=== PATIENT | female | born 1950 | race Caucasian/White ===

== ENCOUNTER 2018-10-13 05:29 | Day surgery (SDC) | payer MEDICARE, BC ==
[~2018-10-13 05:29] MED LIST: Sodium Chloride 0.9% 10 ML Syringe FLUSH PRN
[2018-10-13] MEDS ORDERED: Midazolam 1 MG/ML 2 ML SDV IV ONE ×5 (05:30→06:42)
[2018-10-13] MEDS ORDERED: fentaNYL 100 MCG/2 ML SDV IV ONE ×3 (05:30→06:33)
[2018-10-13] MEDS ORDERED: Dextrose 5%-0.45% NaCl 1,000 ML IV SCH (06:00)
[2018-10-13] MEDS ORDERED: Midazolam 1 MG/ML 2 ML SDV ONE (06:13)
[2018-10-13] MEDS ORDERED: fentaNYL 100 MCG/2 ML SDV ONE (06:13)
--- NOTE | 2018-10-13 07:12 | OR ---
DATE: 10/13/2018 PROCEDURE: Total colonoscopy. INSTRUMENT USED: PCF-H180 AL Olympus video colonoscope. PREMEDICATIONS: Fentanyl 100 mcg intravenous, Versed 3 mg intravenous. Nasal O2 cannula. The procedure was done under pulse oximetry, BP recording, and monitoring analyst. INDICATION: The patient with recent episode of left-sided lower abdominal pain, treated as diverticulitis, and also found to be anemic. Colonoscopic examination is done for detection of any polypoid lesions and removal. Endoscopic hemostasis therapy if needed. DESCRIPTION OF PROCEDURE: Initial rectal exam was unremarkable. Rigid anoscopy was normal. The colonoscope was passed with ease. Numerous scattered diverticula were noted in the distal left colon along with deformity. The scope was passed with ease up to the ileocecal area. Photographs were taken of the normal-appearing cecum identified by landmarks of appendiceal orifice and double-bulged ileocecal folds. No bleeding was noted from any of the visualized areas at the commencement of the examination. No stricture. No vascular ectasia. No large isolated ulcerations seen. No evidence of diffuse inflammatory bowel disease in the form of friability, contact bleeding, or ulcerations. No polyp or tumor mass identified. The bowel preparation was found to be adequate, [place] scale 3. Probing the proximal sides of folds and flexures, using adequate distention and clearing up the stool material, withdrawal of the scope was made. Cecum-to- rectum time over 6 minutes. No bleeding was noted from any of the visualized areas at the completion of examination. IMPRESSION: Diverticulosis. The patient tolerated the procedure well. [facility] /[id number]
== END 2018-10-13 08:50 | disposition home or self-care (01) ==
LOC: DL.ENDO 05:29
PROVIDERS: ATTEND Internal Medicine Gastroenterology
DX: R10.32 Left lower quadrant pain (principal); D64.9 Anemia, unspecified; K57.30 Diverticulosis of large intestine without perforation or abscess without bleeding; I10 Essential (primary) hypertension; J45.909 Unspecified asthma, uncomplicated; E11.9 Type 2 diabetes mellitus without complications; E66.09 Other obesity due to excess calories; K59.00 Constipation, unspecified; M06.9 Rheumatoid arthritis, unspecified; I25.10 Atherosclerotic heart disease of native coronary artery without angina pectoris; E78.5 Hyperlipidemia, unspecified; Z86.010 Personal history of colon polyps
CPT/HCPCS: 45378; J2250; J3010; J7042

== ENCOUNTER 2019-06-23 07:09 | Day surgery (SDC) | payer MEDICARE, BC ==
[~2019-06-23 07:09] MED LIST changes: +Midazolam 1 MG/ML 2 ML SDV ONE; -Sodium Chloride 0.9% 10 ML Syringe FLUSH PRN; +fentaNYL 100 MCG/2 ML SDV ONE
[2019-06-23] MEDS ORDERED: Midazolam 1 MG/ML 2 ML SDV IV ONE ×3 (07:10→08:14)
[2019-06-23] MEDS ORDERED: fentaNYL 100 MCG/2 ML SDV IV ONE ×3 (07:10→08:12)
[2019-06-23] MEDS ORDERED: Dextrose 5%-0.45% NaCl 1,000 ML IV SCH (08:00)
--- NOTE | 2019-06-23 14:14 | OR ---
DATE: 06/23/2019 PROCEDURES: Esophagogastroduodenoscopy, NBI, and multiple pinch biopsies. INSTRUMENT USED: GIF-HQ190 Olympus video panendoscope. PREMEDICATIONS: No oral or topical anesthesia used. Fentanyl 100 mcg intravenous, Versed 2 mg intravenous, nasal O2 cannula. Procedure was done under pulse oximetry, BP recording, and clerk general office. INDICATION: The patient with persistent upper abdominal pain as well as dyspepsia, unexplained and not responsive to medical measures, on high-dose PPI. Esophagogastroduodenoscopy is performed for detection of any active erosive lesions, H. pylori status to be determined, small bowel biopsies to be obtained for celiac disease if indicated, endoscopic hemostasis therapy if needed. PROCEDURE IN DETAIL: The scope was passed with ease. Adequate visualization of the esophagus was made from proximal to distal areas. No upper esophageal lesions identified. No distal esophageal stricture. No uphill or downhill esophageal varices. No [place]-C[place] tear. No evidence of erosive esophagitis by [place] criteria. No esophageal polyp or tumor mass identified. Z-line was seen at around 39 cm distal to the oral verge, configuration consistent with grade 1 by ZAP classification. No proximal gastric varices noted. Gastric fundus examination by retroflexion showed numerous 3 to 5 mm sized benign- appearing polyps. Photographs were taken, multiple pinch biopsies were obtained and sent for histopathology. No gastric ulcer, malignant mass, or vascular ectasia identified. Duodenal bulb showed no ulcer. Visualized second part of the duodenum was unremarkable. Multiple pinch biopsies, 4 in number were taken from different areas of the second part of the duodenum and tissues were also obtained from the duodenal bulb at 9 and 12 o'clock positions, and sent for any histopathologic evidence of celiac disease. Multiple pinch biopsies were obtained from the gastric antrum and proximal body and sent for PyloriTek test for H. pylori and histopathology. No bleeding was noted from any of the visualized areas at the completion of examination. Photographs were taken of the duodenal bulb, gastric antrum, fundus, and distal esophagus. IMPRESSION: Gastric fundus polyps. The patient tolerated the procedure well. [facility] /[id number]
== END 2019-06-23 10:15 | disposition home or self-care (01) ==
LOC: DL.ENDO 07:09
PROVIDERS: ATTEND Internal Medicine Gastroenterology
DX: R10.10 Upper abdominal pain, unspecified (principal); R10.13 Epigastric pain; K31.7 Polyp of stomach and duodenum; I25.10 Atherosclerotic heart disease of native coronary artery without angina pectoris; I10 Essential (primary) hypertension; E78.5 Hyperlipidemia, unspecified; E11.9 Type 2 diabetes mellitus without complications; M06.9 Rheumatoid arthritis, unspecified; Z86.010 Personal history of colon polyps
CPT/HCPCS: 43239; 87077; J2250; J3010; J7042